=== PATIENT | male | born 1965 | race American Indian/Alaskan Native ===

== ENCOUNTER 2017-08-06 14:52 | Emergency (ER) | payer OTHER ==
[2017-08-06] MEDS ORDERED: ZOFRAN ODT PO ONE (18:33)
--- NOTE | 2017-08-06 18:38 | Emergency Department Report ---
ED General Adult HPI - General Chief complaint: Abdominal Pain Stated complaint: BLOCKED MURRAY CATH Time Seen by Provider: 08/06/17 18:33 Source: EMS Mode of arrival: Stretcher Limitations: No Limitations - Related Data Home Medications Medication Instructions Recorded Confirmed Last Taken Ketorolac [Toradol] 10 mg PO Q6H PRN 08/01/17 08/05/17 07/31/17 Naproxen [Naprosyn] 500 mg PO PRN PRN 08/01/17 08/05/17 07/31/17 Tamsulosin [Flomax] 0.4 mg PO QDAY 08/01/17 08/05/17 08/04/17 traMADol [Ultram] 50 mg PO Q6HR PRN 08/01/17 08/05/17 07/31/17 Previous Rx's Medication Instructions Recorded Last Taken Type Oxybutynin [Ditropan] 5 mg PO Q8HR PRN #30 tablet 08/05/17 Unknown Rx traMADol [Ultram] 50 mg PO Q6HR PRN #20 tablet 08/05/17 Unknown Rx HYDROcodone/APAP 5-325 [[place] 1 each PO Q6HR PRN #7 tablet 08/06/17 Unknown Rx 5/325] Ondansetron [Zofran Odt] 4 mg PO Q8HR PRN #12 tab.rapdis 08/06/17 Unknown Rx Allergies Allergy/AdvReac Type Severity Reaction Status Date / Time No Known Allergies Allergy Verified 08/01/17 10:12 ED Review of Systems ROS: Stated complaint: BLOCKED MURRAY CATH Other details as noted in HPI Constitutional: denies: chills, fever Eyes: denies: eye pain, eye discharge, vision change ENT: denies: ear pain, throat pain Respiratory: denies: cough, shortness of breath, wheezing Cardiovascular: denies: chest pain, palpitations Endocrine: no symptoms reported Gastrointestinal: denies: abdominal pain, nausea, diarrhea Genitourinary: as per HPI. denies: urgency, dysuria Musculoskeletal: denies: back pain, joint swelling, arthralgia Skin: denies: rash, lesions Neurological: denies: headache, weakness, paresthesias Psychiatric: denies: anxiety, depression Hematological/Lymphatic: denies: easy bleeding, easy bruising ED Past Medical Hx - Past Medical History Hx Hypertension: Yes (X 6 MONTHS- "JUST WATCHING,NO MEDS YET") Hx Liver Disease: Yes (HEP C ) Hx Renal Disease: No (STONES) Hx Arthritis: Yes Hx Kidney Stones: Yes Hx HIV: No - Social History Smoking Status: Never Smoker Substance Use Type: None - Medications Home Medications: Home Medications Medication Instructions Recorded Confirmed Last Taken Type Ketorolac [Toradol] 10 mg PO Q6H PRN 08/01/17 08/05/17 07/31/17 History Naproxen [Naprosyn] 500 mg PO PRN PRN 08/01/17 08/05/17 07/31/17 History Tamsulosin [Flomax] 0.4 mg PO QDAY 08/01/17 08/05/17 08/04/17 History traMADol [Ultram] 50 mg PO Q6HR PRN 08/01/17 08/05/17 07/31/17 History Oxybutynin [Ditropan] 5 mg PO Q8HR PRN #30 tablet 08/05/17 Unknown Rx traMADol [Ultram] 50 mg PO Q6HR PRN #20 tablet 08/05/17 Unknown Rx HYDROcodone/APAP 5-325 [[place] 1 each PO Q6HR PRN #7 tablet 08/06/17 Unknown Rx 5/325] Ondansetron [Zofran Odt] 4 mg PO Q8HR PRN #12 tab.rapdis 08/06/17 Unknown Rx ED Physical Exam - General Limitations: No Limitations ED Course Vital Signs 08/06/17 15:08 Temperature 98.2 F Pulse Rate 82 Respiratory 17 Rate Blood Pressure 121/81 O2 Sat by Pulse 99 Oximetry Critical care attestation.: If time is entered above; I have spent that time in minutes in the direct care of this critically ill patient, excluding procedure time. ED Disposition Clinical Impression: Bladder calculi, Flank pain Obstructed Murray catheter Qualifiers: Encounter type: initial encounter Qualified Code(s): T83.091A - Other mechanical complication of indwelling urethral catheter, initial encounter Disposition: TO HOME OR SELFCARE Is pt being admited?: No Does the pt Need Aspirin: No Condition: Stable Instructions: Murray Catheter Placement and Care (ED), Urinary Leg Bag (GEN) Prescriptions: HYDROcodone/APAP 5-325 [[place] 5/325] 1 each PO Q6HR PRN #7 tablet PRN Reason: Pain Ondansetron [Zofran Odt] 4 mg PO Q8HR PRN #12 tab.rapdis PRN Reason: Nausea Referrals: ALVIN DICK MD [Staff Physician] - 3-5 Days
[2017-08-06 19:02] VITALS: BP 120/77
== END 2017-08-06 19:02 | disposition home or self-care (01) ==
LOC: ED 14:52
DX: T83.091A Other mechanical complication of indwelling urethral catheter, initial encounter (principal); N21.0 Calculus in bladder; R10.30 Lower abdominal pain, unspecified; I10 Essential (primary) hypertension; Y84.6 Urinary catheterization as the cause of abnormal reaction of the patient, or of later complication, without mention of misadventure at the time of the procedure
CPT/HCPCS: Q0162